=== PATIENT | male | born 1935 | race Caucasian/White ===

== ENCOUNTER 2017-09-07 22:02 | Observation (INO) ==
[2017-09-07] MEDS ORDERED: SALINE FLUSH 10ml SYRINGE IVF PRN (22:04)
--- NOTE | 2017-09-07 22:10 | Emergency Department Report ---
General Adult HPI - General Stated complaint: UTI Time Seen by Provider: 09/07/17 22:04 Source: patient, other (Dr. Chambers) Mode of arrival: ambulatory Limitations: no limitations - History of Present Illness HPI narrative: Patient was seen for hematuria yesterday in [place], and during the workup was found to be hyperkalemic. Patient was given a liter of normal saline, and instructed to follow-up with his primary care physician today. Patient was seen today, and found to be persistently hyperkalemic with potassium 5.8. Prior value was 6.0 12 hours before. Patient has no muscular weakness or muscle spasms, no abnormal pulses or difficulty breathing. Patient does have continued urinary urgency and dysuria. - Related Data Home Medications Medication Instructions Recorded Confirmed Nitrolingual (nitroglycerin) 400 0.4 mg TL Q5M PRN 09/13/16 09/07/17 mcg/spray translingual aspirin 81 mg tablet,delayed 81 mg PO DAILY tab 09/13/16 09/07/17 release ipratropium-albuterol 0.5 mg-3 3 ml INH Q6H PRN ml 09/13/16 09/07/17 mg(2.5 mg base)/3 mL nebulization soln Previous Rx's Medication Instructions Recorded Glucophage (metformin) 500 mg 500 mg PO BID #180 tab 03/31/17 tablet Glucotrol (glipizide) 5 mg tablet 5 mg PO DAILY #90 tab 03/31/17 Pulmicort (Budesonide) 0.5 mg/2 mL 0.5 mg INH Q12H PRN #180 ampul 03/31/17 suspension for nebulization metoprolol tartrate 25 mg tablet 25 mg PO BID #180 tab 03/31/17 Lasix (Furosemide) 20 mg tablet 20 mg PO QAM #90 tab 07/07/17 Neurontin (gabapentin) 300 mg 300 mg PO TID #270 cap 07/07/17 capsule Plavix (clopidogrel) 75 mg tablet 75 mg PO DAILY #90 tab 07/07/17 famotidine 40 mg tablet 40 mg PO DAILY #90 tab 07/07/17 hyoscyamine sulfate 0.125 mg tablet 0.125 mg PO DAILY #90 tab 07/07/17 isosorbide mononitrate ER 60 mg 60 mg PO QAM #90 tab 07/07/17 tablet,extended release 24 hr levothyroxine 25 mcg tablet 25 mcg PO DAILY #90 tab 07/07/17 lisinopril 10 mg tablet 10 mg PO DAILY #90 tab 07/07/17 Allergies Allergy/AdvReac Type Severity Reaction Status Date / Time simvastatin [From Zocor] AdvReac Hives Verified 09/07/17 22:38 Review of Systems All systems: reviewed and negative except as stated PFSH Patient Stated Medical History Hypertension Yes Myocardial Infarction Yes Other Cardiology Yes: HX CARDIOMYOPATHY Chronic Obstructive Pulmonary Yes Disease (COPD) Diabetes Mellitus Type 2 Yes Hx Urinary Tract Infection Yes Other Yes: RENAL INSUFFICIENCY Osteoarthritis Yes: WALKS WITH CANE Clinic Medical History (Last Reviewed 06/06/17 @ 09:50 by Moise Sanchez LPN) Diabetes mellitus type 2, controlled (Chronic Medical ~2004) Fair control with questionable hypoglycemia. Obesity (BMI 30-39.9) (Chronic Medical) Good weight loss. COPD (chronic obstructive pulmonary disease) (Acute Medical) Diabetes (Acute Medical) HTN (hypertension) (Acute Medical) Hyperlipidemia (Acute Medical) Ischemic cardiomyopathy (Acute Medical) Myocardial infarct, old (Acute Medical) Surgical History: Pacemaker; - Social History Smoking status: Former smoker Alcohol intake: never Current occupational status: retired Physical Exam - Limitations Limitations: no limitations - General General appearance: alert, in no apparent distress, other (patient is a very frail appearing 82-year-old male) - Normal Exams: Head:: Normocephalic without trauma Eyes:: Pupils are PERRLA w/ EOMI, No scleral icterus, irritation, or foreign bodies noted ENMT:: No facial trauma, nasal exudates, pharyngeal erythema, or exudates are noted Neck:: Full range of motion, without adenopathy, JVD, bruits or thyromegaly Chest/Respirations:: Clear all [place], with good airflow, and symmetry bilaterally Cardiovascular:: Regular rate and rhythm, without murmur or gallop, Pulses 2+ all extremities, capillary refill, <2 seconds all extremities Abdomen:: Bowel sounds positive, soft, non-tender, non-distended, no hepatosplenomegaly, masses or bruits noted Lymphatic:: No lymphadenopathy, or lymphedema noted Musculoskeletal:: No tenderness, or deformity noted, good range of motion, all extremities Integumentary:: No rashes, hives, or bruising noted, hair and nails, without abnormality Neurological:: Patient is alert, and oriented, cranial nerves, motor/sensory/ cerebellar, exams w/o gross deficits, to observation Psychiatric:: Patient exhibits, appropriate attention, emotion and affect Course Vital Signs Temperature 97.4 F 09/07/17 22:20 Pulse Rate 76 09/07/17 22:20 Respiratory Rate 24 09/07/17 22:20 Blood Pressure 147/73 H 09/07/17 22:20 Pulse Oximetry 95 09/07/17 22:20 Temperature 97.4 F 09/07/17 22:20 Pulse Rate 76 09/07/17 22:20 Respiratory Rate 24 09/07/17 22:20 Blood Pressure 147/73 H 09/07/17 22:20 Pulse Oximetry 95 09/07/17 22:20 Medical Decision Making - MDM Narrative Medical decision making narrative: Repeat electrolytes shows potassium 5.6. Case is discussed with Dr. Zuniga who will admit the patient for observation to medical, will give one dose of Kayexalate, and will have mental health social worker and OT/ PT evaluate the patient first thing in the morning. - Lab Data Result diagrams: 09/07/17 22:38 Lab Results 09/07/17 09/07/17 Range/Units 22:38 23:15 Turbidity < 20 (0-20) Sodium 147 H (136-146) MEQ/L Potassium 5.6 H (3.6-5) MEQ/L Chloride 108 H (98-107) MEQ/L Carbon Dioxide 27 (22-30) MEQ/L Anion Gap 12 (5-15) meq/L BUN 27.0 H (9-20) MG/DL Creatinine 1.6 H D (0.8-1.5) mg/dL GFR Calculation 42 BUN/Creatinine Ratio 17 (6-26) RATIO Glucose 92 (75-110) MG/DL Calculated Osmolality 287 H (261-280) MOSM/KG Calcium 9.5 (8.4-10.2) MG/DL Total Bilirubin 0.40 (0.20-1.30) MG/DL Conjugated Bilirubin 0.00 (0.00-0.30) mg/dL Unconjugated Bilirubin 0.20 (0.00-1.1) mg/dL Icterus Index < 2 (0-7) AST 39 (17-59) U/L ALT 33 (1-50) U/L Alkaline Phosphatase 121 (38-126) U/L Total Protein 7.4 (6.3-8.2) g/dL Albumin 4.4 (3.5-5.0) g/dL Globulin 3.0 (2.4-3.6) G/DL Albumin/Globulin Ratio 1.5 (1.1-2.2) RATIO Specimen Hemolysis < 15 (0-25) Ur Collection Type Urine, void-cc/notcc Urine Color Yellow (YELLOW) Urine Clarity Clear Urine pH 6.0 (5.0-8.0) Ur Specific [place] 1.010 L (1.015-1.025) Urine Protein Negative (NEGATIVE) Urine Glucose (UA) Negative (NEGATIVE) Urine Ketones Negative (NEGATIVE) Urine Occult Blood Negative (NEGATIVE) Urine Nitrate Positive A (NEGATIVE) Urine Bilirubin Negative (NEGATIVE) Urine Urobilinogen 0.2 (NORMAL) EU/DL Ur Leukocyte Esterase Negative (NEGATIVE) Disposition Clinical Impression: Hyperkalemia UTI (urinary tract infection) Qualifiers: Urinary tract infection type: acute cystitis Hematuria presence: with hematuria Qualified Code(s): N30.01 - Acute cystitis with hematuria Disposition: 02 To OBS [facility] Condition: Stable Prescriptions: No Action ipratropium-albuterol 0.5 mg-3 mg(2.5 mg base)/3 mL nebulization soln 3 ml INH Q6H PRN ml aspirin 81 mg tablet,delayed release 81 mg PO DAILY tab metoprolol tartrate 25 mg tablet 25 mg PO BID #180 tab Pulmicort (Budesonide) 0.5 mg/2 mL suspension for nebulization 0.5 mg INH Q12H PRN #180 ampul PRN Reason: copd Glucophage (metformin) 500 mg tablet 500 mg PO BID #180 tab Plavix (clopidogrel) 75 mg tablet 75 mg PO DAILY #90 tab levothyroxine 25 mcg tablet 25 mcg PO DAILY #90 tab lisinopril 10 mg tablet 10 mg PO DAILY #90 tab Neurontin (gabapentin) 300 mg capsule 300 mg PO TID #270 cap Lasix (Furosemide) 20 mg tablet 20 mg PO QAM #90 tab famotidine 40 mg tablet 40 mg PO DAILY #90 tab hyoscyamine sulfate 0.125 mg tablet 0.125 mg PO DAILY #90 tab Nitrolingual (nitroglycerin) 400 mcg/spray translingual 0.4 mg TL Q5M PRN Glucotrol (glipizide) 5 mg tablet 5 mg PO DAILY #90 tab isosorbide mononitrate ER 60 mg tablet,extended release 24 hr 60 mg PO QAM # 90 tab Referrals: Ramón Chambers DO [Primary Care Provider] - - Seen By: physician
[2017-09-07] MEDS ORDERED: NS 1,000 ML IV ONE (22:46)
[2017-09-08] MEDS ORDERED: ALBUTEROL/IPRATROPIUM 2.5mg-0.5mg/3ml NEB AEROSOL PRN (00:28)
[2017-09-08] MEDS ORDERED: SENNA + DOCUSATE TABLET PO PRN (00:28)
[2017-09-08] MEDS ORDERED: ONDANSETRON 4 MG/2 ML INJECTION IVP PRN (00:28)
[2017-09-08] MEDS ORDERED: BUDESONIDE INH.SOLN 0.5mg/2ml NEB AEROSOL PRN (00:28)
[2017-09-08] MEDS ORDERED: ACETAMINOPHEN 325 MG TABLET PO PRN (00:28)
[2017-09-08] MEDS: NS 1,000 ML IV SCH ×2 (00:51→13:44)
[2017-09-08 01:06] VITALS: BMI 27.8
[2017-09-08] MEDS ORDERED: SODIUM POLYSTYRENE SULFONATE 15 GM/60 ML BOTTLE PO ONE (01:36)
[2017-09-08] MEDS ORDERED: GLUCOSE ORAL GEL 40% 37.5gm PO PRN (01:37)
[2017-09-08] MEDS ORDERED: INSULIN ASPART 100unit/ml INJECTION SQ PRN (01:37)
--- NOTE | 2017-09-08 01:56 | History & Physical Report ---
History of Present Illness Date: 09/08/17 Chief complaint: Debility, hematuria, weakness, hyperkalemia HPI: guillermo is a pleasant 82-year-old man, patient of dr. chambers, who was seen at [facility] department yesterday with gross hematuria. he has chronic kidney disease, and was noted to have a elevated creatinine and potassium, 1.9 and 6, respectively. he was hydrated and discharged to follow up with his primary care physician today, which he did. his metformin and lisinopril were held. he was prescribed pyridium and keflex, but when his potassium was noted to still be elevated, he was advised to go to the emergency department for further evaluation. his potassium remains elevated at 5.6, and creatinine at 1.6, although these were improving it was suggested that he be admitted for several doses of kayexalate. as he is rather frail, and lives alone with a service dog, several doses of kayexalate for this man would likely not be ruano at home due to fall risk, etc. it was felt reasonable to place him in observation status for further evaluation and management. Review of Systems All systems PM: 10-point ROS was reviewed, no additional remarkable complaints except Review of systems: obtained with the assistance of his daughter at the bedside - Constitutional Constitutional: Present: weakness. Absent: chills, fever(s) - EENMT Eyes: Absent: change in vision Nose: Absent: change in smell Mouth/Throat: Absent: pain - Cardiovascular Cardiovascular: Absent: chest pain, palpitations, syncope, dyspnea on exertion Rhythm: Present: regular rhythm - Respiratory Respiratory: Absent: cough, dyspnea, dyspnea on exertion - Gastrointestinal Gastrointestinal: Present: diarrhea ( tends to have loose stools according to his daughter) - Neurological Neurological: Present: other ( generally walks with a cane, may need a walker). Absent: abnormal movements, abnormal speech, focal weakness Past Medical History Medical History: Medical History (Last Reviewed 06/06/17 @ 09:50 by Moise Sanchez LPN) Diabetes mellitus type 2, controlled (Chronic) Onset Date: ~2004 Fair control with questionable hypoglycemia. Obesity (BMI 30-39.9) (Chronic) Good weight loss. 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 copd. hypothyroidism. hypertension. coronary artery disease, his daughter states he has had a total of 5 myocardial infarctions Surgical History: Pacemaker; Family History Updates: unknown to the patient as he is adopted Family History: Adopted - Social History Smoking status: Former smoker (quit about 10 years ago) Household members: children ( his daughter lives in town and checks on him regularly but he does live alone independently with a service dog, an malagasy strong) Medications Home Medications Medication Instructions Recorded Confirmed Type Nitrolingual (nitroglycerin) 400 0.4 mg TL Q5M PRN 09/13/16 09/08/17 History mcg/spray translingual aspirin 81 mg tablet,delayed 81 mg PO DAILY tab 09/13/16 09/08/17 History release ipratropium-albuterol 0.5 mg-3 3 ml INH Q6H PRN ml 09/13/16 09/08/17 History mg(2.5 mg base)/3 mL nebulization soln Glucotrol (glipizide) 5 mg tablet 5 mg PO DAILY #90 tab 03/31/17 09/08/17 Rx Pulmicort (Budesonide) 0.5 mg/2 mL 0.5 mg INH Q12H PRN #180 ampul 03/31/1709/08 Rx suspension for nebulization metoprolol tartrate 25 mg tablet 25 mg PO BID #180 tab 03/31/17 09/08/17 Rx Plavix (clopidogrel) 75 mg tablet 75 mg PO DAILY #90 tab 07/07/17 09/08/17 Rx famotidine 40 mg tablet 40 mg PO DAILY #90 tab 07/07/17 09/08/17 Rx isosorbide mononitrate ER 60 mg 60 mg PO QAM #90 tab 07/07/17 09/08/17 Rx tablet,extended release 24 hr levothyroxine 25 mcg tablet 25 mcg PO DAILY #90 tab 07/07/17 09/08/17 Rx Cinnamon Bark/Chromium Picolin 1 cap PO DAILY 09/08/17 09/08/17 History [Cinnamon Plus Chromium Capsule] Furosemide [Lasix 20 mg Tab] 10 mg PO QAM 09/08/17 09/08/17 History Gabapentin 300 mg PO BID 09/08/17 09/08/17 History Lisinopril [Prinivil] 5 mg PO DAILY 09/08/17 09/08/17 History Melatonin/Pyridoxine HCl (B6) 5 mg PO HS 09/08/17 09/08/17 History [Melatonin 5 mg Tablet] Naproxen Sodium [Aleve] 220 mg PO DAILY 09/08/17 09/08/17 History Allergies Allergy/AdvReac Type Severity Reaction Status Date / Time simvastatin [From Zocor] AdvReac Hives Verified 09/07/17 22:38 Exam Vital Signs: Temperature 97.7 F 09/08/17 00:29 Pulse Rate 84 09/08/17 00:29 Respiratory Rate 20 09/08/17 00:29 Blood Pressure 161/77 H 09/08/17 00:29 Pulse Oximetry 97 09/08/17 00:29 Height/Weight/BMI: Height 5 ft 8 in Weight 83 kg Body Mass Index 27.8 - Constitutional Present: no acute distress, obese - Routine HEENT Exam Head: Present: normocephalic, atraumatic Eye: Present: EOMI, PERRL ENT: Present: mucous membranes moist - Routine Neck Exam Present: supple. Absent: JVD - Routine Respiratory Exam Present: CTA bilaterally. Absent: accessory muscle use - Routine Cardiovascular Exam Present: RRR, no murmur - Routine Abdominal Exam Present: soft, normoactive bowel sounds, non distended, non tender - Routine Extremities Exam Present: edema ( trace pitting edema bilateral lower extremities symmetric), pulses intact. Absent: cyanosis, clubbing - Routine Skin Exam Present: intact, dry, warm. Absent: pallor, rash - Routine Neurological Exam Present: alert, oriented X3, moving all extremities - Routine Psychiatric Exam Present: normal affect - Additional findings Additional findings: examination was performed using telemedicine equipment with the assistance of the bedside nurse Results - Labs CBC & Chem 7: 09/08/17 04:13 09/08/17 04:13 Microbiology Results: Microbiology 09/07/17 23:15 Urine, Voided (Cc/notcc) Urine Culture - Preliminary Culture Initiated - Results Pending Assessment and Plan (1) Hyperkalemia Current visit: Yes Status: Acute Assessment and Plan: fremitus placed in observation status, with continued gentle iv fluids and one dose of 15 g kayexalate ordered. additional doses are likely unnecessary as his potassium is improving with the holding of lisinopril and improvement of his gfr. recheck labs in the morning. the majority of his home medications are ordered to continue as well as before meals and at bedtime accu-cheks with a insulin sliding scale ordered. appreciate physical and occupational therapy as well as community mental health social worker input, he may be a candidate for additional services at home. we will provide further symptomatically supportive and diagnostic cares as the current workup, or as changes in his clinical scenario, indicate. plan of care was discussed with the patient and his daughter at the bedside at the time of my evaluation and they expressed understanding and desire to proceed. full code status. DVT Prophylaxis: SCD's Resuscitation Status: Full Code - Physician Narrative Physician: Sol Bassett MD Narrative: Date: 09/08/17 Time: 1210 Dr. Zuniga's note reviewed. Mr. Rome interviewed and examined. CC: Hyperkalemia HPI: Mr. Rome was evaluated in the emergency room [place] 2 days ago for gross hematuria. During that evaluation he was found to have an elevated creatinine of 1.9 and potassium of 6.0. He was treated with IV fluids and started on Pyridium and Keflex for presumed urinary tract infection. He was hydrated and advised to discontinue lisinopril, metformin, and Lasix. Prior to discharge from the ER repeat labs demonstrated some improvement in potassium at 5.5 although creatinine remained elevated at 1.9. He subsequently followed up with Dr. Chambers yesterday where potassium had increased slightly to 5.8 but creatinine had improved to 1.4 (baseline approximately 1.4). Because potassium was climbing he was referred to the ER for further evaluation. Patient denied ongoing hematuria, dysuria, or frequency. Administration of Kayexalate was recommended and because the patient lives independently was felt that hospitalization for administration of Kayexalate would be necessary. Repeat potassium last night was 5.6 prior to Kayexalate administration. Patient has known chronic renal failure in addition to heart failure with AICD. Potassium over the past year has typically been about 5.0. PH/SH/FH: agree with that recorded above by Dr. Zuniga with additions of history of heavy tobacco use, no history of alcohol or illicit drug use. The patient's daughter Stephany torrez is DPOA and the patient is a full code. Dr. Chambers is his primary care physician. ROS: 10 point review as per Dr. Zuniga EXAM: General-NAD, alert, fluent speech; 96.2, 69, 18, 144/71, 95% on 1 L oxygen supplemental oxygen HEENT-right pupil 1 mm with some scarring, left pupil 2.5 mm-reacts briskly, EOMI without nystagmus, conjunctiva clear, sclera anicteric, bilateral arcus, conjugate gaze, facial structures symmetric, oropharynx clear, neck supple and without adenopathy Lungs-respirations nonlabored, good airflow, breath sounds clear Cardiac-regular rhythm, S1-S2 Abd-hyperactive bowel sounds,'s abdomen soft, nontender, no guarding Ext-without edema Skin-without wounds/rashes Neuro-sensation intact to light touch 4 extremities, normal motor tone, MAEW Psych-calm, cooperative, pleasant DATA: Hemoglobin 13.5, WBC 7.6; presenting BMP as above, repeat potassium this morning 5.7, creatinine 1.5, A1c 6.0. A/P: Hyperkalemia Acute kidney injury/CKD-stage III CAD Ischemic heart myopathy Diabetes mellitus Hypertension Gross hematuria, resolved UTI Patient reports doing well this morning. He said resolution of hematuria and urinary symptoms that were present 2 days ago when he was evaluated in the emergency room [place]. He received Kayexalate overnight in addition to supplemental IV fluids. Lasix, lisinopril, and metformin were discontinued 2 days ago. Blood sugars are adequately controlled thus far and blood pressure is only modestly elevated. Electrolytes will be reassessed later this afternoon to determine if discharge can be accomplished later today. Hospital Course Summary Disclaimer: The visit summary below is not to be considered part of the above Progress Note.
[2017-09-08] MEDS ORDERED: NITROGLYCERIN 0.4 MG SUBLINGUAL TABLET SL PRN (06:13)
[2017-09-08] MEDS ORDERED: ISOSORBIDE MONONITRATE ER 60 MG TABLET PO SCH (06:30)
[2017-09-08] MEDS ORDERED: LEVOTHYROXINE 25 MCG TABLET PO SCH (06:30)
[2017-09-08] MEDS ORDERED: GlipiZIDE 5 MG TABLET PO SCH (07:30)
[2017-09-08] MEDS ORDERED: ASPIRIN *EC* 81 MG TABLET PO SCH (09:00)
[2017-09-08] MEDS ORDERED: CLOPIDOGREL 75 MG TABLET PO SCH (09:00)
[2017-09-08] MEDS ORDERED: FAMOTIDINE 40 MG TABLET PO SCH (09:00)
[2017-09-08 15:18] VITALS: BP 158/82; PULSE 68; RESP 14; TEMP 96.6; O2SAT 97
[2017-09-08] MEDS ORDERED: GABAPENTIN 300 MG CAPSULE PO SCH (21:00)
--- NOTE | 2017-09-08 23:22 | Discharge Summary ---
Discharge Information Date of admission: 09/07/17 23:32 Anticipated date of discharge: 09/08/17 Attending Physician: Sol Bassett MD Primary care physician: Ramón Chambers DO Consults: - Discharge Diagnosis (1) Hyperkalemia Status: Acute Hyperkalemia Acute kidney injury/CKD-stage III CAD Ischemic heart myopathy Diabetes mellitus Hypertension Gross hematuria, resolved UTI - Laboratory Labs: Admission potassium 5.6, creatinine 1.6 09/08/17 04:13 09/08/17 13:43 - Microbiology Microbiology 09/07/17 23:15 Urine, Voided (Cc/notcc) Urine Culture - Preliminary Culture Initiated - Results Pending History of Present Illness HPI: Kaleb is a pleasant 82-year-old man, patient of dr. chambers, who was seen at [facility] yesterday with gross hematuria. he has chronic kidney disease, and was noted to have a elevated creatinine and potassium, 1.9 and 6, respectively. he was hydrated and discharged to follow up with his primary care physician today, which he did. his metformin and lisinopril were held. he was prescribed pyridium and keflex, but when his potassium was noted to still be elevated, he was advised to go to the emergency department for further evaluation. his potassium remains elevated at 5.6, and creatinine at 1.6, although these were improving it was suggested that he be admitted for several doses of kayexalate. as he is rather frail, and lives alone with a service dog, several doses of kayexalate for this man would likely not be ruano at home due to fall risk, etc. it was felt reasonable to place him in observation status for further evaluation and management. Objective Vital signs: Temperature 96.6 F L 09/08/17 15:00 Pulse Rate 68 09/08/17 15:00 Respiratory Rate 14 09/08/17 15:00 Blood Pressure 158/82 H 09/08/17 15:00 Pulse Oximetry 97 09/08/17 15:00 reference H&P earlier today Height/Weight/BMI: Height 1.73 m Weight 83 kg Body Mass Index 27.8 Hospital Course This is a general summary of the patient's hospital course. For more details refer to the complete medical record. Hospital course: Mr. Rome was referred to the hospital for treatment with Kayexalate after potassium level had climbed following treatment with IV fluids and discontinuation of several medications as outlined in the history when he was seen in the [facility] emergency room 2 days earlier. EKG in the emergency room revealed paced rhythm but no hyperkalemic changes. He received one dose of Kayexalate at approximately 2 AM following arrival on the medical unit after which he had several large watery stools. IV fluids were continued to maintain adequate hydration. Medications previously discontinued (lisinopril, metformin, and Lasix) remained on hold. Potassium was rechecked later in the day and found to have dropped to 5.1 with stable/improved renal function. Patient reported that hematuria which originally prompted evaluation at [facility] has resolved. He denied ongoing urinary urgency. He has been scheduled for urology follow-up. He was evaluated by physical therapy and felt stable for discharge home. With improvement in potassium patient was felt stable for discharge with continuation of medications as previously recommended at discharge from [facility]. I've asked that he monitor his weight regularly as he has a known underlying ischemic cardiomyopathy and may ultimately require resumption of Lasix. He is asked to follow-up with Dr. Chambers in one week at which time electrolytes will need to be reevaluated. Sodium was slightly elevated ranging from 147-151 on the 4 occasions it was checked on 09/07 and 09/08. Low-sodium diet was recommended. Patient did meet with the dietitian while he was hospitalized and low potassium recommendations were reviewed with the patient and his daughter. Resuscitation Status: Full Code Discharge Plan - Discharge Disposition Discharge Date: 09/08/17 Disposition: 01 Discharged Home, Self-Care *Condition: Stable Reason For Visit (Visit label in EMR): hyperkalemia, Debility - Discharge Medications *Discharge Medications: New CephALEXin [Keflex 500 mg] 500 mg PO Q8HR cap Continue Melatonin/Pyridoxine HCl (B6) [Melatonin 5 mg Tablet] 5 mg PO HS Cinnamon Bark/Chromium Picolin [Cinnamon Plus Chromium Capsule] 1 cap PO DAILY Naproxen Sodium [Aleve] 220 mg PO DAILY Gabapentin 300 mg PO BID ipratropium-albuterol 0.5 mg-3 mg(2.5 mg base)/3 mL nebulization soln 3 ml INH Q6H PRN ml PRN Reason: Shortness Of Air aspirin 81 mg tablet,delayed release 81 mg PO DAILY tab metoprolol tartrate 25 mg tablet 25 mg PO BID #180 tab Pulmicort (Budesonide) 0.5 mg/2 mL suspension for nebulization 0.5 mg INH Q12H PRN #180 ampul PRN Reason: copd Plavix (clopidogrel) 75 mg tablet 75 mg PO DAILY #90 tab levothyroxine 25 mcg tablet 25 mcg PO DAILY #90 tab famotidine 40 mg tablet 40 mg PO DAILY #90 tab Nitrolingual (nitroglycerin) 400 mcg/spray translingual 0.4 mg TL Q5M PRN PRN Reason: Chest Pain Glucotrol (glipizide) 5 mg tablet 5 mg PO DAILY #90 tab isosorbide mononitrate ER 60 mg tablet,extended release 24 hr 60 mg PO QAM # 90 tab Discontinued Furosemide [Lasix 20 mg Tab] 10 mg PO QAM Lisinopril [Prinivil] 5 mg PO DAILY - Discharge Packet/Instructions *Diet: Diabetic, low potassium, low salt *Activity: As tolerate *Pain Management/Treatment: Tylenol per package instructions if pain medicine needed *Wound Care: Not applicable Additional Instructions: Follow-up with Dr. Chambers in approximately one week to have potassium reevaluated. Do not resume lisinopril, furosemide, or metformin at this time-they may be resumed in the future. Monitor your blood sugars as usual. Check your weight daily or every other day as previously instructed by Dr. Negron. *Expected Signs/Symptoms: No new symptoms expected *Notify Physician if: Weight is increasing more than 3 pounds in 24 hours or 5 pounds in a week, urine becomes bloody again *During Business Hours Contact: Dr. Chambers's office *After Business Hours Contact: Call [facility] at [phone] and ask that the on-call physician be paged *Pending Lab/Results: No Pending Lab - Referrals/Follow Up *Referrals/Follow Up: Ramón Chambers DO [Primary Care Provider] - 09/15/17 10:30 am (recheck labs APPOINTMENT WITH DR. CHAMBERS) - Patient Handouts Patient Handouts: Hyperkalemia (GEN) - Dismissal Complete Discharge Instructions are:: Complete Physician Narrative - Narrative Attestation Narrative: Date: 09/08/17 Time: 0403
== END 2017-09-08 16:30 | disposition home or self-care (01) ==
LOC: ED 22:02 → EDHOLD 22:02 → MED 09-08 00:20 → EDHOLD 09-08 00:20
PROVIDERS: ADMIT Internal Medicine; ATTEND Internal Medicine